=== PATIENT | male | born 2000 | race Hispanic/Latino ===

== ENCOUNTER 2020-11-15 07:30 | Emergency (ER) | payer SELFPAY ==
[2020-11-15 07:40] VITALS: BP 121/63
[2020-11-15] MEDS ORDERED: DIPHtheria,PERTUSSIS(ACELL),TETANUS VACCINE/PF 0.5 ML VIAL IM ONE (08:04)
--- NOTE | 2020-11-15 08:04 | Emergency Department Report ---
ED General Adult HPI - General Chief complaint: Extremity Injury, Lower Stated complaint: STEPPED ON NAIL Time Seen by Provider: 11/15/20 08:01 Source: patient Mode of arrival: Ambulatory Limitations: No Limitations - History of Present Illness Initial comments: 20-year-old male patient presents with complaints of right foot puncture wound x yesterday. Patient states he stepped on a pin with his barefoot. He states he did remove the pin intact. He reports he is having pain and redness in the area. He denies any difficulty moving his foot or any numbness/tingling or fever. Patient rates his pain as a 7/10 in severity. Pain worsens with walking. - Related Data Previous Rx's Medication Instructions Recorded Last Taken Type Ibuprofen [Motrin 800 MG tab] 800 mg PO Q8HR PRN #15 tablet 11/15/20 Unknown Rx cephALEXin [Keflex] 500 mg PO Q12HR 7 Days #14 cap 11/15/20 Unknown Rx levoFLOXacin [Levaquin TAB] 500 mg PO QDAY #3 tablet 11/15/20 Unknown Rx Allergies Allergy/AdvReac Type Severity Reaction Status Date / Time risperidone [From Risperdal] Allergy Unknown Verified 11/15/20 07:36 ED Review of Systems ROS: Stated complaint: STEPPED ON NAIL Other details as noted in HPI Constitutional: denies: chills, diaphoresis, fever, malaise, weakness Respiratory: denies: cough, shortness of breath Skin: change in color. denies: rash Hematological/Lymphatic: denies: swollen glands ED Past Medical Hx - Past Medical History Previous Medical History?: No - Surgical History Past Surgical History?: No - Social History Smoking Status: Current Every Day Smoker Substance Use Type: None - Medications Home Medications: Home Medications Medication Instructions Recorded Confirmed Last Taken Type Ibuprofen [Motrin 800 MG tab] 800 mg PO Q8HR PRN #15 tablet 11/15/20 Unknown Rx cephALEXin [Keflex] 500 mg PO Q12HR 7 Days #14 cap 11/15/20 Unknown Rx levoFLOXacin [Levaquin TAB] 500 mg PO QDAY #3 tablet 11/15/20 Unknown Rx ED Physical Exam - General Limitations: No Limitations General appearance: alert, in no apparent distress - Head Head exam: Present: atraumatic, normocephalic - Eye Eye exam: Absent: scleral icterus - Respiratory Respiratory exam: Absent: respiratory distress - Cardiovascular Cardiovascular Exam: Present: regular rate - Neurological Exam Neurological exam: Present: alert, oriented X3, normal gait - Psychiatric Psychiatric exam: Present: normal affect, normal mood - Skin Skin exam: Present: warm, dry, intact, other (Pinpoint puncture wound noted to plantar forefoot region with mild surrounding erythema and tenderness to palpation no drainage or decreased range of motion noted patient has normal sensation;;). Absent: rash ED Course Vital Signs 11/15/20 07:34 Temperature 97.7 F Pulse Rate 66 Respiratory 18 Rate Blood Pressure 121/63 O2 Sat by Pulse 96 Oximetry ED Medical Decision Making - Medical Decision Making 20-year-old male patient presents with complaints of right foot puncture wound x yesterday. Patient states he stepped on a pin with his bar efoot. He states he did remove the pin intact. He reports he is having pain and redness in the area. He denies any difficulty moving his foot or any numbness/tingling or fever. Patient rates his pain as a 7/10 in severity. Pain worsens with walking. Prophylactic Keflex and Levaquin given. His vitals are normal, he is well- appearing, he is stable for discharge home. Recommend follow-up with primary care in 3 to 5 days. Discussed signs and symptoms that should prompt immediate return to the emergency department in detail with patient who verbalizes understanding. Critical care attestation.: If time is entered above; I have spent that time in minutes in the direct care of this critically ill patient, excluding procedure time. ED Disposition Clinical Impression: Puncture wound of foot, right Qualifiers: Encounter type: initial encounter Qualified Code(s): S91.331A - Puncture wound without foreign body, right foot, initial encounter Disposition: - TO HOME OR SELFCARE Is pt being admited?: No Condition: Stable Instructions: Puncture Wound Prescriptions: cephALEXin [Keflex] 500 mg PO Q12HR 7 Days #14 cap levoFLOXacin [Levaquin TAB] 500 mg PO QDAY #3 tablet Ibuprofen [Motrin 800 MG tab] 800 mg PO Q8HR PRN #15 tablet PRN Reason: pain Referrals: [facility] [Provider Group] - 3-5 Days
== END 2020-11-15 08:41 | disposition home or self-care (01) ==
LOC: ED 07:30
DX: S91.331A Puncture wound without foreign body, right foot, initial encounter (principal); F17.200 Nicotine dependence, unspecified, uncomplicated; Z88.8 Allergy status to other drugs, medicaments and biological substances; Z79.899 Other long term (current) drug therapy; W21.31XA Struck by shoe cleats, initial encounter; Y93.89 Activity, other specified; Y92.89 Other specified places as the place of occurrence of the external cause; Y99.8 Other external cause status
CPT/HCPCS: 90471; 90715; 99282